=== PATIENT | male | born 1970 | race Caucasian/White ===

== ENCOUNTER 2016-09-06 09:55 | Outpatient (RCR) | payer OTHER | END 2016-12-05 | disposition home or self-care (01) | LOC: PT | DX: Z47.89 Encounter for other orthopedic aftercare (principal); M75.101 Unspecified rotator cuff tear or rupture of right shoulder, not specified as traumatic ==

== ENCOUNTER 2016-12-09 08:28 | Outpatient (RCR) | payer OTHER | END 2017-01-31 13:12 | disposition home or self-care (01) | LOC: PT 08:28 | DX: Z47.89 Encounter for other orthopedic aftercare (principal) ==

== ENCOUNTER 2020-01-26 21:07 | Emergency (ER) | payer OTHER ==
[2020-01-26 22:15] LABS: HEMOGLOBIN 14.9 g/dL (13.5-18.0); MEAN CELL VOLUME 87 fl (78-100); MEAN CORPUSCULAR HEMOGLOBIN 30 pg (27-31); MEAN CORPUSCULAR HGB CONC 35 g/dL (33-37); MEAN PLATELET VOLUME 9.5 fl (7.4-10.4); PLATELET COUNT 287 K/mm3 (130-400); RED BLOOD COUNT 4.96 M/mm3 (4.20-5.60); RED CELL DISTRIBUTION WIDTH 12.4 % (11.5-14.5); WHITE BLOOD COUNT 9.7 K/mm3 (4.8-10.8)
[2020-01-26 22:34] LABS: LYMPHOCYTE 11 % (20-51); MONOCYTE 9 % (3-10); NEUTROPHILS 80 % (42-75)
[2020-01-26 23:04] VITALS: BP 112/86
== END 2020-01-26 23:04 | disposition home or self-care (01) ==
LOC: ED 21:07
PROVIDERS: Family Medicine
DX: R53.81 Other malaise (principal); R06.00 Dyspnea, unspecified

== ENCOUNTER 2021-01-20 10:56 | Outpatient (RCR) | payer OTHER | END 2021-04-20 | disposition still patient (30) | LOC: PT | DX: S46.012A Strain of muscle(s) and tendon(s) of the rotator cuff of left shoulder, initial encounter (principal) ==

== ENCOUNTER 2021-04-21 08:56 | Outpatient (RCR) | payer OTHER | END 2021-07-20 | disposition home or self-care (01) | LOC: PT | DX: Z98.890 Other specified postprocedural states (principal) ==

== ENCOUNTER 2021-08-11 08:59 | Outpatient (RCR) | payer OTHER | END 2021-09-03 | disposition home or self-care (01) | LOC: PT 08:59 | DX: Z96.642 Presence of left artificial hip joint (principal) ==

== ENCOUNTER 2021-09-08 09:26 | Outpatient (RCR) | payer OTHER | END 2021-10-04 | disposition home or self-care (01) | LOC: PT | DX: Z96.642 Presence of left artificial hip joint (principal) ==

== ENCOUNTER 2021-10-06 09:30 | Outpatient (RCR) | payer OTHER | END 2021-10-13 17:00 | disposition home or self-care (01) | LOC: PT 09:30 | DX: M25.552 Pain in left hip (principal); Z96.642 Presence of left artificial hip joint ==